=== PATIENT | male | born 1955 | race African-American/Black ===

== ENCOUNTER 2020-12-16 05:56 | Emergency (ER) | payer OTHER ==
--- NOTE | 2020-12-16 06:55 | EDPHYS ---
Physician Documentation [facility] Name: Colby Ramirez Age: 65 yrs Sex: Male : 1955 Arrival Date: 12/16/2020 Time: 06:10 Bed 15 Private MD: ED Physician Brandon Guerrero HPI: 12/16 06:11 This 65 yrs old Black Male presents to ER via Unassigned with complaints of whyte rn catheter problem. 06:11 The patient presents with a Whyte catheter problem, is not draining. Onset: The rn symptoms/episode began/occurred last night. Modifying factors: The symptoms are alleviated by nothing, the symptoms are aggravated by nothing. Associated signs and symptoms: Pertinent positives: abdominal pain, hematuria, Pertinent negatives: fever. Severity of symptoms: At their worst the symptoms were moderate, in the emergency department the symptoms are unchanged. The patient has not experienced similar symptoms in the past. Reports chronic whyte catheter placement 2/2 BPH, had whyte catheter replaced yesterday because "was time", reports pain with insertion, then noted blood, and now not draining. Sent here for further eval. . Historical: - Allergies: 06:24 No Known Allergies; jm8 - Home Meds: 06:24 Unable to obtain [Active]; jm8 - PMHx: 06:24 CVA; Hypertension; 8 - PSHx: 06:24 Unable to obtain; 8 - Immunization history:: Adult Immunizations up to date. - Social history:: Smoking status: unknown. - Family history:: not pertinent. - Hospitalizations: : No recent hospitalization is reported. ROS: 06:11 Constitutional: Negative for fever, chills, and weight loss, Eyes: Negative for injury, rn pain, redness, and discharge, Neck: Negative for injury, pain, and swelling, Cardiovascular: Negative for chest pain, palpitations, and edema, Respiratory: Negative for shortness of breath, cough, wheezing, and pleuritic chest pain, Abdomen/GI: + lower abd pain Back: Negative for injury and pain, : whyte not draining MS/Extremity: Negative for injury and deformity, Skin: Negative for injury, rash, and discoloration, Neuro: Negative for headache, weakness, numbness, tingling, and seizure. Exam: 06:11 Constitutional: This is a well developed, well nourished patient who is awake, alert, rn appears uncomfortable Head/Face: Normocephalic, atraumatic. Eyes: Periorbital areas with no swelling, redness, or edema. ENT: MMM Cardiovascular: Tachycardic, regular Respiratory: No increased work of breathing, no retractions or nasal flaring. Abdomen/GI: Soft, + suprapubic fullness and tenderness Skin: Warm, dry MS/ Extremity: Pulses equal, no cyanosis. Neuro: Awake and alert, GCS 15 Vital Signs: 06:16 BP 172 / 124; Pulse 99; Resp 16; Temp 98.7; Pulse Ox 96% on R/A; Weight 68.04 kg; 8 Height 5 ft. 4 in. (162.56 cm); Pain 10/10; 06:25 BP 146 / 88; Pulse 93; Resp 16; Pulse Ox 97% on R/A; 8 06:16 Body Mass Index 25.75 (68.04 kg, 162.56 cm) [facility] MDM: 06:10 Patient medically screened. rn 06:52 Differential diagnosis: urinary retention, Whyte catheter problem. Data reviewed: vital rn signs, nurses notes, and as a result, I will discharge patient. Counseling: I had a detailed discussion with the patient and/or guardian regarding: the historical points, exam findings, and any diagnostic results supporting the discharge/admit diagnosis, the need for outpatient follow up, to return to the emergency department if symptoms worsen or persist or if there are any questions or concerns that arise at home. Response to treatment: the patient's symptoms have markedly improved after treatment, and as a result, I will discharge patient. Special discussion: I discussed with the patient/guardian in detail that at this point there is no indication for admission to the hospital. It is understood, however, that if the symptoms persist or worsen the patient needs to return immediately for re-evaluation. ED course: Pt markedly improved with whyte swap, feels back to normal, new whyte irrigated and draining clear now, will dc back to residential. . 12/16 06:11 Order name: Bladder Irrigation; Complete Time: 06:38 rn 12/16 06:11 Order name: Whyte; Complete Time: 06:38 rn Administered Medications: No medications were administered Disposition: 12/16/20 06:54 Discharged to Home. Impression: Retention of urine, unspecified, Obstruction of whyte catheter. - Condition is Stable. - Discharge Instructions: Whyte Catheter Care, Adult, Acute Urinary Retention, Male. - Medication Reconciliation Form, Thank You Letter, Antibiotic Education, Prescription Opioid Use form. - Follow up: Private Physician; When: As needed; Reason: Recheck today's complaints, Re-evaluation by your physician. - Problem is new. - Symptoms have improved. Signatures: Brandon Guerrero MD MD rn Smirch, Shelby, RN RN ss Austin Taylor RN RN jm8 Corrections: (The following items were deleted from the chart) 07:23 06:54 12/16/2020 06:54 Discharged to Home. Impression: Retention of urine, unspecified; ss Obstruction of whyte catheter. Condition is Stable. Forms are Medication Reconciliation Form, Thank You Letter, Antibiotic Education, Prescription Opioid Use. Follow up: Private Physician; When: As needed; Reason: Recheck today's complaints, Re-evaluation by your physician. Problem is new. Symptoms have improved. rn
--- NOTE | 2020-12-16 06:55 | ER ---
Nurse's Notes [facility] Name: Colby Ramirez Age: 65 yrs Sex: Male : 1955 Arrival Date: 12/16/2020 Time: 06:10 Bed 15 Private MD: Diagnosis: Retention of urine, unspecified;Obstruction of whyte catheter Presentation: 12/16 06:16 Chief complaint: EMS states: patient had his whyte switched at last night at 8 pm. jm8 States that it hurt more than usual when it was put in. Patient states he woke up with lower abdominal pain and blood and clots in his whyte bag. Coronavirus screen: Client denies travel out of the [place] in the last 14 days. Ebola Screen: Patient negative for fever greater than or equal to 101.5 degrees Fahrenheit, and additional compatible Ebola Virus Disease symptoms Patient denies exposure to infectious person. Patient denies travel to an Ebola-affected area in the 21 days before illness onset. Initial Sepsis Screen: Does the patient meet any 2 criteria? No. Patient's initial sepsis screen is negative. Does the patient have a suspected source of infection? No. Patient's initial sepsis screen is negative. Risk Assessment: Do you want to hurt yourself or someone else? Patient reports no desire to harm self or others. Onset of symptoms was December 15, 2020 at 20:00. 06:16 Method Of Arrival: EMS: [facility] 06:16 Acuity: [facility] 06:22 Care prior to arrival: Medication(s) given: fentanyl 100 mg IV initiated. 20 GA, in the 8 left forearm. Historical: - Allergies: 06:24 No Known Allergies; jm8 - Home Meds: 06:24 Unable to obtain [Active]; 8 - PMHx: 06:24 CVA; Hypertension; [facility] - PSHx: 06:24 Unable to obtain; [facility] - Immunization history:: Adult Immunizations up to date. - Social history:: Smoking status: unknown. - Family history:: not pertinent. - Hospitalizations: : No recent hospitalization is reported. Screenin:22 Abuse screen: Denies threats or abuse. Denies injuries from another. Nutritional [facility] screening: No deficits noted. Tuberculosis screening: No symptoms or risk factors identified. Fall Risk None identified. Assessment: 06:19 General: Appears in no apparent distress. uncomfortable, Behavior is calm, cooperative, jm8 appropriate for age. Pain: Complains of pain in abdomen Pain currently is 10 out of 10 on a pain scale. Quality of pain is described as crushing, pressure, stabbing, Pain began 1 day ago. Noted to be grimacing, guarding, resistant to movement. Neuro: No deficits noted. Level of Consciousness is awake, alert, obeys commands, Oriented to person, place, time. Cardiovascular: No deficits noted. Respiratory: No deficits noted. Airway is patent Trachea midline Respiratory effort is even, unlabored, Respiratory pattern is regular, symmetrical. GI: No deficits noted. No signs and/or symptoms were reported involving the gastrointestinal system. : Whyte in place to gravity drainage Urine is blood tinged, ivette blood, Bladder is distended Reports cramping, lower quadrant(s) pain in suprapubic area. EENT: No deficits noted. No signs and/or symptoms were reported regarding the EENT system. Derm: No deficits noted. No signs and/or symptoms reported regarding the dermatologic system. Skin is intact, is healthy with good turgor, Skin is dry, Skin is pink, warm \T\ dry. Musculoskeletal: No deficits noted. No signs and/or symptoms reported regarding the musculoskeletal system. Vital Signs: 06:16 BP 172 / 124; Pulse 99; Resp 16; Temp 98.7; Pulse Ox 96% on R/A; Weight 68.04 kg; jm8 Height 5 ft. 4 in. (162.56 cm); Pain 10/10; 06:25 BP 146 / 88; Pulse 93; Resp 16; Pulse Ox 97% on R/A; jm8 06:16 Body Mass Index 25.75 (68.04 kg, 162.56 cm) 8 ED Course: 06:10 Patient arrived in ED. rn 06:10 Brandon Guerrero MD is Attending Physician. rn 06:15 Whyte cath removed intact, balloon deflated. jm8 06:15 Maintain EMS IV. Dressing intact. Site clean \T\ dry. Gauge \T\ site: 20 g left forearm. 8 06:19 Triage completed. 8 06:20 Whyte cath inserted, using sterile technique, 16 Fr., by or, balloon inflated, to jm8 gravity drainage, returned bloody urine. Patient tolerated well. 06:22 Arm band placed on right wrist. jm8 06:25 Patient has correct armband on for positive identification. Bed in low position. Call jm8 light in reach. Side rails up X2. Adult w/ patient. 07:21 No provider procedures requiring assistance completed. IV discontinued, intact, ss bleeding controlled, No redness/swelling at site. Pressure dressing applied. Administered Medications: No medications were administered Output: 07:23 Urine: 1000ml (Whyte); Total: 1000ml. ss Outcome: 06:54 Discharge ordered by . rn 07:22 Discharged to [facility] officers to [facility]. ss 07:22 Condition: improved 07:22 Discharge instructions given to patient, [facility] guards Instructed on discharge instructions, follow up and referral plans. Demonstrated understanding of instructions, follow-up care. 07:23 Patient left the ED. Signatures: Brandon Guerrero MD MD rn Smirch, Shelby, RN RN Austin Taylor RN RN jm8
[2020-12-16 07:32] VITALS: TEMP 98.7
[2020-12-16 07:33] VITALS: BP 146/88; O2SAT 97
== END 2020-12-16 07:23 | disposition home or self-care (01) ==
LOC: ER 05:56
DX: T83.098A Other mechanical complication of other urinary catheter, initial encounter (principal); I10 Essential (primary) hypertension; Z86.73 Personal history of transient ischemic attack (TIA), and cerebral infarction without residual deficits
CPT/HCPCS: 51702; 99284